=== PATIENT | female | born 1980 | race Caucasian/White ===

== ENCOUNTER 2016-04-16 09:36 | Emergency (ER) | payer OTHER ==
[2016-04-16 09:43] VITALS: BP 115/67
[2016-04-16 11:26] LABS: APPEARANCE,URINE SLIGHTLY-CLOUDY; BILIRUBIN,URINE NEGATIVE (NEGATIVE); GLUCOSE, URINE NEGATIVE (NEGATIVE); KETONES,URINE NEGATIVE (NEGATIVE); LEUKOCYTE ESTERASE,URINE MODERATE (NEGATIVE); NITRITE,URINE NEGATIVE (NEGATIVE); PROTEIN,URINE NEGATIVE (NEGATIVE); UROBILINOGEN,URINE NEGATIVE mg/dL (<2.0)
[2016-04-16] MEDS ORDERED: HYDROCORTISONE ACETATE 25 MG SUPP.RECT PR ONE (12:00)
--- NOTE | 2016-04-16 12:00 | ER Document Report ---
ED GI/ - General Mode of Arrival: Ambulatory Information source: Patient TRAVEL OUTSIDE OF THE [place] IN LAST 30 DAYS: No - HPI Patient complains to provider of: Flank pain Onset: This morning Timing/Duration: Sudden Location: RUQ, Right flank Associated symptoms: None Similar symptoms previously: Yes - General Chief Complaint: Flank Pain Stated Complaint: FLANK PAIN Notes: Patient is a 35 year old female that presents to the emergency department today with complaints of right upper quadrant and "side" pain. Patient states that she has a history of kidney stone and this feels similar to her previous kidney stones. Patient states she wanted to "catch it before it got bad" however while waiting in the waiting room of the ED, her symptoms subsided. Patient denies any dysuria or vaginal discharge. (AWAIS RUSSELL) - Related Data Allergies/Adverse Reactions: No Known Allergies Allergy (Verified 04/16/16 09:44) Past Medical History - General Information source: Patient - Social History Smoking Status: Current Every Day Smoker Cigarette use (# per day): Yes Chew tobacco use (# tins/day): No Frequency of alcohol use: None Drug Abuse: Marijuana Lives with: Family Family History: Reviewed & Not Pertinent Patient has suicidal ideation: No Patient has homicidal ideation: No Renal/ Medical History: Reports: Hx Kidney Stones Psychiatric Medical History: Reports: Hx Bipolar Disorder, Hx Depression Past Surgical History: Reports: Hx Nose Surgery, Hx Oral Surgery - Immunizations Hx Diphtheria, Pertussis, Tetanus Vaccination: No Review of Systems - Review of Systems Constitutional: No symptoms reported EENT: No symptoms reported Cardiovascular: No symptoms reported Respiratory: No symptoms reported Gastrointestinal: See HPI, Other - RUQ abdominal pain Genitourinary: See HPI, Other - right flank pain. denies: Burning, Dysuria, Discharge Female Genitourinary: No symptoms reported Musculoskeletal: No symptoms reported Skin: No symptoms reported Hematologic/Lymphatic: No symptoms reported Neurological/Psychological: No symptoms reported -: Yes All other systems reviewed and negative Physical Exam - Vital signs Interpretation: Normal - General General appearance: Appears well, Alert In distress: None - HEENT Head: Normocephalic, Atraumatic Eyes: Normal Conjunctiva: Normal Extraocular movements intact: Yes - Respiratory Respiratory status: No respiratory distress - Cardiovascular Rhythm: Regular - Abdominal Inspection: Normal Distension: No distension Bowel sounds: Normal Tenderness: Nontender - Back Back: Normal, Nontender. No: CVA tenderness - Extremities General upper extremity: Normal inspection, Normal ROM. No: Edema General lower extremity: Normal inspection, Normal ROM. No: Edema - Neurological Neuro grossly intact: Yes Cognition: Normal Orientation: AAOx4 Speech: Normal - Psychological Associated symptoms: Normal affect, Normal mood - Skin Skin Temperature: Warm Skin Moisture: Dry Skin Color: Normal Course - Re-evaluation Re-evalutation: 04/16/16 No evidence for infection or kidney stone today. Patient is able to follow up with urology at the [facility]. Patient is requesting Preparation H for hemorrhoids. Will be discharged home with Flomax and medication as the patient feels that she 's getting a kidney stone and is fairly insistent about this. Stable for discharge. Return if any worsening or concerning symptoms. (EMY PIPER) - Vital Signs Vital signs: Temp Pulse Resp BP Pulse Ox 98.0 F 76 20 115/67 98 04/16/16 09:43 04/16/16 09:43 04/16/16 09:43 04/16/16 09:43 04/16/16 09:43 (AWAIS RUSSELL) (EMY PIPER) - Laboratory Laboratory results interpreted by me: 04/16/16 10:40 Ur Leukocyte Esterase MODERATE H Urine Ascorbic Acid 40 H (AWAIS RUSSELL) (EMY PIPER) Discharge - Discharge Clinical Impression: Flank pain Hemorrhoids Qualifiers: Hemorrhoid type: unspecified Qualified Code(s): K64.9 - Unspecified hemorrhoids Condition: Stable Disposition: HOME, SELF-CARE Instructions: Kidney Stone ([facility]) Additional Instructions: Please follow-up with urology as scheduled. Please return if you have any worsening or concerning symptoms. Prescriptions: Ondansetron [Zofran Odt 4 mg Tablet] 4 mg PO Q4HP PRN #30 tab.rapdis PRN Reason: Oxycodone HCl/Acetaminophen [Percocet 5-325 mg Tablet] 1 tab PO ASDIR PRN #15 tab PRN Reason: Phenyleph/Mineral Oil/Petrolat [Preparation H Ointment] 57 gm RC BID #1 oint.appl Tamsulosin HCl [Flomax 0.4 mg Cap.sr] 0.4 mg PO DAILY #14 cap.sr.24h Scribe Attestation: 04/16/16 19:10 I personally performed the services described in the documentation, reviewed and edited the documentation which was dictated to the scribe in my presence, and it accurately records my words and actions. (EMY PIPER) Scribe Documentation - Scribe Written by Scribe:: Julián Diaz, 04/16/16 1220 acting as scribe for :: Albino
== END 2016-04-16 12:00 | disposition home or self-care (01) ==
LOC: ER 09:36
DX: K64.9 Unspecified hemorrhoids (principal); R10.11 Right upper quadrant pain; F17.210 Nicotine dependence, cigarettes, uncomplicated; Z87.442 Personal history of urinary calculi
CPT/HCPCS: 99284; 87086; 81025; 81001; J3490

== ENCOUNTER 2016-10-26 19:39 | Emergency (ER) | payer OTHER ==
[2016-10-26] MEDS ORDERED: IBUPROFEN 800 MG TABLET PO ONE (20:12)
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
[2016-10-26 21:35] VITALS: BP 117/70
== END 2016-10-26 21:30 | disposition home or self-care (01) ==
LOC: ER 19:39
DX: M25.511 Pain in right shoulder (principal); M25.512 Pain in left shoulder; Y04.8XXA Assault by other bodily force, initial encounter; Y92.009 Unspecified place in unspecified non-institutional (private) residence as the place of occurrence of the external cause; M25.40 Effusion, unspecified joint; F17.210 Nicotine dependence, cigarettes, uncomplicated; Z71.6 Tobacco abuse counseling
CPT/HCPCS: 99283

== ENCOUNTER 2017-09-03 19:24 | Emergency (ER) | payer OTHER ==
--- NOTE | 2017-09-03 20:16 | ER Document Report ---
ED Medical Screen (RME) - General Chief Complaint: Shortness Of Breath Stated Complaint: SHORTNESS OF BREATH Time Seen by Provider: 09/03/17 20:11 Mode of Arrival: Ambulatory Information source: Patient TRAVEL OUTSIDE OF THE [place] IN LAST 30 DAYS: No - HPI Patient complains to provider of: sob Onset: Yesterday - pt with c/o SOB for the past 2 days. Denies CP. Pos. cigarette smoker - Related Data Allergies/Adverse Reactions: No Known Allergies Allergy (Verified 04/16/16 09:44) Past Medical History Renal/ Medical History: Reports: Hx Kidney Stones. Denies: Hx Peritoneal Dialysis Musculoskeltal Medical History: Reports Hx Musculoskeletal Trauma Psychiatric Medical History: Reports: Hx Bipolar Disorder, Hx Depression Past Surgical History: Reports: Hx Nose Surgery, Hx Oral Surgery - Immunizations Hx Diphtheria, Pertussis, Tetanus Vaccination: No Physical Exam - Vital signs Vitals: Temp Pulse Resp BP Pulse Ox 98.4 F 78 18 115/69 98 09/03/17 19:34 09/03/17 19:34 09/03/17 19:34 09/03/17 19:34 09/03/17 19:34 Course - Vital Signs Vital signs: Temp Pulse Resp BP Pulse Ox 98.4 F 78 18 115/69 98 09/03/17 19:34 09/03/17 19:34 09/03/17 19:34 09/03/17 19:34 09/03/17 19:34
--- NOTE | 2017-09-03 20:36 | RADIOLOGY REPORT (SQ) ---
EXAM DESCRIPTION: CHEST 2 VIEWS COMPLETED DATE/TIME: 09/03/2017 8:29 pm REASON FOR STUDY: SOB COMPARISON: None. EXAM PARAMETERS: NUMBER OF VIEWS: two views TECHNIQUE: Digital Frontal and Lateral radiographic views of the chest acquired. RADIATION DOSE: NA LIMITATIONS: none FINDINGS: LUNGS AND PLEURA: No opacities, masses or pneumothorax. No pleural effusion. MEDIASTINUM AND HILAR STRUCTURES: No masses or contour abnormalities. HEART AND VASCULAR STRUCTURES: Heart normal size. No evidence for failure. BONES: No acute findings. HARDWARE: None in the chest. OTHER: No other significant finding. IMPRESSION: NO ACUTE RADIOGRAPHIC FINDING IN THE CHEST. TECHNICAL DOCUMENTATION: JOB ID: [id number] [employer]- All Rights Reserved Reading location - IP/workstation name: [email or web address]
[2017-09-03 20:54] LABS: ABSOLUTE BASOPHILS # (AUTO) 0.1 10^3/uL (0.0-0.2); ABSOLUTE EOSINOPHILS # (AUTO) 0.5 10^3/uL (0.0-0.6); ABSOLUTE LYMPHOCYTES (AUTO) 2.7 10^3/uL (0.5-4.7); ABSOLUTE MONOCYTES (AUTO) 0.7 10^3/uL (0.1-1.4); ABSOLUTE NEUT (AUTO) 6.1 10^3/uL (1.7-8.2); EOSINOPHILS % (AUTO) 4.5 % (0-6); HEMATOCRIT 37.3 % (36.0-47.0); LYMPHOCYTES % (AUTO) 26.5 % (13-45); MEAN CORPUSCULAR HEMOGLOBIN 31.7 pg (27.0-33.4); MEAN CORPUSCULAR HGB CONC 34.9 g/dL (32.0-36.0); MEAN CORPUSCULAR VOLUME 91 fl (80-97); MONOCYTES % (AUTO) 7.4 % (3-13); PLATELET COUNT 248 10^3/uL (150-450); RED CELL DISTRIBUTION WIDTH 12.9 % (11.5-14.0); SEGMENTED NEUTROPHILS % (AUTO) 60.6 % (42-78); TOTAL CELLS COUNTED % (AUTO) 100 %; WHITE BLOOD COUNT 10.1 10^3/uL (4.0-10.5)
[2017-09-03 20:59] LABS: ALANINE AMINOTRANSFERASE 19 U/L (9-52); ALBUMIN 4.3 g/dL (3.5-5.0); ALKALINE PHOSPHATASE 62 U/L (38-126); ANION GAP 11 (5-19); ASPARTATE AMINO TRANSFERASE 15 U/L (14-36); BILIRUBIN,DIRECT 0.2 mg/dL (0.0-0.4); BILIRUBIN,TOTAL 0.3 mg/dL (0.2-1.3); BLOOD UREA NITROGEN 6 mg/dL (7-20); CALCIUM 9.3 mg/dL (8.4-10.2); CARBON DIOXIDE 24 mmol/L (22-30); CHLORIDE 109 mmol/L (98-107); GLUCOSE 105 mg/dL (75-110); POTASSIUM 4.3 mmol/L (3.6-5.0); SODIUM 143.6 mmol/L (137-145); TOTAL PROTEIN 7.2 g/dL (6.3-8.2)
[2017-09-03] MEDS ORDERED: HYDROXYZINE PAMOATE 50 MG CAPSULE PO ONE (23:13)
--- NOTE | 2017-09-03 23:19 | ER Document Report ---
ED General - General Chief Complaint: Shortness Of Breath Stated Complaint: SHORTNESS OF BREATH Time Seen by Provider: 09/03/17 20:11 Mode of Arrival: Ambulatory Notes: Patient is a 37-year-old female with a past medical history of anxiety, bipolar disorder and depression who presents with 1 week of feeling intermittently like she cannot catch her breath. The patient reports that she often feels like there is something stuck in her throat and that she has to swallow repeatedly or sit up and gasp for air. She states this happens day and night but is more notable at night. She states that the symptoms have been unchanged since onset. She has not tried anything to improve her symptoms and has not noted that anything seems to worsen her symptoms. She does note that she self discontinued all of her psychiatric medications approximately 1-2 weeks ago. She also has had significant emotional distress due to loss of multiple family members recently. She denies any chest pain, fever, hematemesis or syncope. She has not seen her general doctor regarding today's concerns. She denies any history of similar symptoms in the past. TRAVEL OUTSIDE OF THE [place] IN LAST 30 DAYS: No - Related Data Allergies/Adverse Reactions: No Known Allergies Allergy (Verified 04/16/16 09:44) Past Medical History - General Information source: Patient - Social History Smoking Status: Current Every Day Smoker Chew tobacco use (# tins/day): No Frequency of alcohol use: None Drug Abuse: Cocaine, Marijuana Lives with: Alone Family History: Hyperlipidemia, Hypertension, Malignancy. denies: Arthritis, CAD, COPD, CVA, DM, Thyroid Disfunction Patient has suicidal ideation: No Patient has homicidal ideation: No Renal/ Medical History: Reports: Hx Kidney Stones. Denies: Hx Peritoneal Dialysis Musculoskeletal Medical History: Reports Hx Musculoskeletal Trauma Psychiatric Medical History: Reports: Hx Bipolar Disorder, Hx Depression Past Surgical History: Reports: Hx Nose Surgery, Hx Oral Surgery - Immunizations Hx Diphtheria, Pertussis, Tetanus Vaccination: No Review of Systems - Review of Systems Notes: Constitutional: Negative for fever. HENT: Negative for sore throat. Eyes: Negative for visual changes. Cardiovascular: Negative for chest pain. Respiratory: Positive for shortness of breath. Gastrointestinal: Negative for abdominal pain, vomiting or diarrhea. Genitourinary: Negative for dysuria. Musculoskeletal: Negative for back pain. Skin: Negative for rash. Neurological: Negative for headaches, weakness or numbness. 10 point ROS negative except as marked above and in HPI. Physical Exam - Vital signs Vitals: Temp Pulse Resp BP Pulse Ox 98.4 F 78 18 115/69 98 09/03/17 19:34 09/03/17 19:34 09/03/17 19:34 09/03/17 19:34 09/03/17 19:34 Interpretation: Normal Notes: PHYSICAL EXAMINATION: GENERAL: Well-appearing, well-nourished and in no acute distress. HEAD: Atraumatic, normocephalic. EYES: Pupils equal round and reactive to light, extraocular movements intact, sclera anicteric, conjunctiva are normal. ENT: nares patent, oropharynx clear without exudates. Moist mucous membranes. NECK: Normal range of motion, supple without lymphadenopathy, no stridor LUNGS: Breath sounds clear to auscultation bilaterally and equal. No wheezes rales or rhonchi. HEART: Regular rate and rhythm without murmurs ABDOMEN: Soft, nontender, normoactive bowel sounds. No guarding, no rebound. No masses appreciated. EXTREMITIES: Normal range of motion, no pitting or edema. No cyanosis. NEUROLOGICAL: No focal neurological deficits. Moves all extremities spontaneously and on command. PSYCH: Anxious, tearful SKIN: Warm, Dry, normal turgor, no rashes or lesions noted. Course - Re-evaluation Re-evalutation: 09/03/17 23:17 The patient presents with complaints of 1 week of feeling that she cannot catch her breath. The patient relates severe stressors and anxiety in her life and has also self discontinued all of her antidepressants and her Abilify. She states that it feels like she cannot take a deep breath as there is something caught in her throat. However on exam she is well-appearing, talking in a normal pace, no stridor or wheezing on exam. Labs and imaging unremarkable. The patient is tearful, highly anxious on examination. Clinical history is not consistent with an organic pathology such as bacterial tracheitis, epiglottitis , asthma exacerbation, or an acute pneumonia. She is PERC criteria negative and I do not clinically suspect a pulmonary embolus. Chest x-ray is clear. EKG unremarkable. Labs including a troponin unremarkable. I have restarted the patient on her normal home medications of which she has been off for the past 1 week and have started on hydroxyzine as needed for anxiety. At this time will discharge with return precautions and follow-up recommendations. Verbal discharge instructions given a the bedside and opportunity for questions given. Medication warnings reviewed. Patient is in agreement with this plan and has verbalized understanding of return precautions and the need for primary care follow-up in the next 24-72 hours. - Vital Signs Vital signs: Temp Pulse Resp BP Pulse Ox 97.8 F 73 16 104/49 L 99 09/03/17 23:59 09/03/17 23:59 09/03/17 23:59 09/03/17 23:59 09/03/17 23:59 - Laboratory Result Diagrams: 09/03/17 20:33 09/03/17 20:33 Laboratory results interpreted by me: 09/03/17 20:33 Chloride 109 H BUN 6 L - Diagnostic Test Radiology reviewed: Image reviewed, Reports reviewed Radiology results interpreted by me: 09/03/17 23:19 Chest x-ray: No acute infiltrate or pneumothorax - EKG Interpretation by Me Additional EKG results interpreted by me: 09/03/17 23:19 Sinus rhythm. Rate 75. No ST elevations or depressions. QTC is 434. Discharge - Discharge Clinical Impression: Shortness of breath, Anxiety Condition: Good Disposition: HOME, SELF-CARE Additional Instructions: Please begin taking all of your normal medications as prescribed. Use the hydroxyzine that has been prescribed as needed for anxiety not controlled by your normal medications. All of your labs and chest x-ray are normal today. Your symptoms appear to be most likely related to your untreated anxiety and depression. Please return if you have thoughts of wanting to hurt yourself, hurt others, or have any other symptoms that are concerning to you. Please also return if any worsening of your shortness of breath, chest pain, vomiting, fever greater than 100.4F, or any other symptoms that are worrisome to you. Prescriptions: Aripiprazole [Abilify] 20 mg PO DAILY #30 tablet Gabapentin 300 mg PO BID #60 capsule Hydroxyzine Pamoate [Vistaril 25 mg Capsule] 25 mg PO BID PRN #30 capsule PRN Reason: Anxiety Venlafaxine HCl 75 mg PO DAILY #30 tablet
--- NOTE | 2017-09-03 23:25 | EKG REPORT ---
SEVERITY:- NORMAL ECG - SINUS RHYTHM : Confirmed by: Cathy Quintero MD 03-Sep-2017 23:24:58
[2017-09-04 00:08] VITALS: BP 104/49
== END 2017-09-04 00:08 | disposition home or self-care (01) ==
LOC: ER 19:24
DX: F41.9 Anxiety disorder, unspecified (principal); F43.9 Reaction to severe stress, unspecified; R06.02 Shortness of breath; R09.89 Other specified symptoms and signs involving the circulatory and respiratory systems; F31.9 Bipolar disorder, unspecified; T43.596A Underdosing of other antipsychotics and neuroleptics, initial encounter; T43.206A Underdosing of unspecified antidepressants, initial encounter; Z91.128 Patient's intentional underdosing of medication regimen for other reason; Z91.14 Patient's other noncompliance with medication regimen; F17.200 Nicotine dependence, unspecified, uncomplicated
CPT/HCPCS: 36415; 71046; 80053; 84484; 85025; 93005; 93010; 99285

== ENCOUNTER 2017-10-07 08:38 | Observation (INO) | payer OTHER ==
[2017-10-07] MEDS ORDERED: NORMAL SALINE 1000 ML 1,000 ML IV PRN (09:14)
[2017-10-07 09:31] LABS: ABSOLUTE BASOPHILS # (AUTO) 0.1 10^3/uL (0.0-0.2); ABSOLUTE EOSINOPHILS # (AUTO) 0.4 10^3/uL (0.0-0.6); ABSOLUTE LYMPHOCYTES (AUTO) 2.4 10^3/uL (0.5-4.7); ABSOLUTE MONOCYTES (AUTO) 0.9 10^3/uL (0.1-1.4); BASOPHILS % (AUTO) 0.9 % (0-2); EOSINOPHILS % (AUTO) 3.5 % (0-6); HEMATOCRIT 38.1 % (36.0-47.0); HEMOGLOBIN 13.1 g/dL (12.0-15.5); LYMPHOCYTES % (AUTO) 22.6 % (13-45); MEAN CORPUSCULAR HEMOGLOBIN 31.3 pg (27.0-33.4); MEAN CORPUSCULAR HGB CONC 34.4 g/dL (32.0-36.0); MEAN CORPUSCULAR VOLUME 91 fl (80-97); PLATELET COUNT 365 10^3/uL (150-450); RED BLOOD COUNT 4.18 10^6/uL (3.72-5.28); RED CELL DISTRIBUTION WIDTH 13.4 % (11.5-14.0); TOTAL CELLS COUNTED % (AUTO) 100 %; WHITE BLOOD COUNT 10.8 10^3/uL (4.0-10.5)
[2017-10-07] MEDS ORDERED: KETOROLAC TROMETHAMINE INJ/PF 30 MG/1 ML SDV IV ONE (09:34)
[2017-10-07 09:48] LABS: APPEARANCE,URINE TURBID; BILIRUBIN,URINE NEGATIVE (NEGATIVE); COLOR,URINE AMBER; GLUCOSE, URINE NEGATIVE (NEGATIVE); KETONES,URINE TRACE mg/dL (NEGATIVE); LEUKOCYTE ESTERASE,URINE LARGE (NEGATIVE); NITRITE,URINE NEGATIVE (NEGATIVE); PROTEIN,URINE 100 mg/dL (NEGATIVE); URINE SPECIFIC GRAVITY 1.023; UROBILINOGEN,URINE NEGATIVE mg/dL (<2.0)
[2017-10-07 09:50] LABS: ALANINE AMINOTRANSFERASE 8 U/L (9-52); ALBUMIN 4.5 g/dL (3.5-5.0); ALKALINE PHOSPHATASE 95 U/L (38-126); ANION GAP 15 (5-19); ASPARTATE AMINO TRANSFERASE 25 U/L (14-36); BILIRUBIN,DIRECT 0.3 mg/dL (0.0-0.4); BILIRUBIN,TOTAL 0.6 mg/dL (0.2-1.3); BLOOD UREA NITROGEN 7 mg/dL (7-20); CALCIUM 9.7 mg/dL (8.4-10.2); CARBON DIOXIDE 23 mmol/L (22-30); CHLORIDE 106 mmol/L (98-107); GLUCOSE 96 mg/dL (75-110); POTASSIUM 4.2 mmol/L (3.6-5.0); SODIUM 143.5 mmol/L (137-145)
[2017-10-07] MEDS ORDERED: CEFTRIAXONE INJ 1000 MG VIAL IV ONE (11:22)
--- NOTE | 2017-10-07 11:57 | RADIOLOGY REPORT (SQ) ---
EXAM DESCRIPTION: CT LTD RENAL STONE PROTOCOL ON COMPLETED DATE/TIME: 10/07/2017 11:41 am REASON FOR STUDY: Right flank pain, urine positive blood, WBC, bact COMPARISON: 04/21/2015 TECHNIQUE: CT scan of the abdomen and pelvis performed without intravenous or oral contrast. Images reviewed with lung, soft tissue, and bone windows. Reconstructed coronal and sagittal MPR images revi ewed. All images stored on PACS. All CT scanners at this facility use dose modulation, iterative reconstruction, and/or weight based d osing when appropriate to reduce radiation dose to as low as reasonably achievable (ALARA). [facility]: Dose Right [facility]: CareDose [facility]: Dose Right [facility]: Teradose 4D [facility]: [employer] RADIATION DOSE: CT Rad equipment meets quality standard of care and radiation dose reduction techniq ues were employed. CTDIvol: 6.8 mGy. DLP: 369 mGy-cm.mGy. LIMITATIONS: None. FINDINGS: LOWER CHEST: No significant findings. No nodules or infiltrates. NON-CONTRASTED LIVER, SPLEEN, ADRENALS: Evaluation limited by lack of IV contrast. No identified sign ificant masses. PANCREAS: No masses. No peripancreatic inflammatory changes. GALLBLADDER: No identified stones by CT criteria. No inflammatory changes to suggest cholecystitis. RIGHT KIDNEY AND URETER: No suspicious masses. Assessment limited by lack of IV contrast. 14 x 13 x 8 mm right UPJ stone with mild to moderate obstructive changes. Stone measures 965 Houn[address] unit s. LEFT KIDNEY AND URETER: No suspicious masses. Assessment limited by lack of IV contrast. No signifi cant calcifications. No hydronephrosis or hydroureter. AORTA AND RETROPERITONEUM: No aneurysm. No retroperitoneal masses or adenopathy. BOWEL AND PERITONEAL CAVITY: No obvious masses or inflammatory changes. No free fluid. APPENDIX: Normal. PELVIS, BLADDER, AND ABDOMINAL WALL:Small calcifications in the pelvis thought to represent phlebolit hs. No abnormal masses. No free fluid. Bladder normal. BONES: No significant findings. OTHER: No other significant finding. IMPRESSION: 1. 14 x 8 mm right UPJ stone with mild to moderate obstructive changes. COMMENT: Quality ID # [id number]: Final reports with documentation of one or more dose reduction techniques (e.g., Automated exposure control, adjustment of the mA and/or kV according to patient size, use of iterative reconstruction technique) TECHNICAL DOCUMENTATION: JOB ID: [id number] [employer]- All Rights Reserved Reading location - IP/workstation name: [email or web address]
--- NOTE | 2017-10-07 12:05 | ER Document Report ---
ED General - General Chief Complaint: Possible Kidney Stone Stated Complaint: SIDE PAIN Time Seen by Provider: 10/07/17 09:27 Notes: Patient says that she has been having pain in her right side and flank region for the past 4 days. Initially, it was intermittent, coming on and then going away, but now it has become constant and feels as if it is stabbing and worse. She denies any fever. Denies any nausea or vomiting. Denies any other current symptoms. Patient has a history of kidney stones 4 times in the past which she has been able to pass. Patient just finished her menstrual cycle a couple of days ago. She is usually irregular. Has never had any abdominal surgeries. TRAVEL OUTSIDE OF THE [place] IN LAST 30 DAYS: No - Related Data Allergies/Adverse Reactions: No Known Allergies Allergy (Verified 04/16/16 09:44) Past Medical History - Social History Smoking Status: Current Every Day Smoker Family History: Reviewed & Not Pertinent, Hyperlipidemia, Hypertension, Malignancy Patient has suicidal ideation: No Patient has homicidal ideation: No Renal/ Medical History: Reports: Hx Kidney Stones Musculoskeletal Medical History: Reports Hx Musculoskeletal Trauma Psychiatric Medical History: Reports: Hx Anxiety, Hx Bipolar Disorder, Hx Depression, Hx Post Traumatic Stress Disorder, Other - Panic attacks Past Surgical History: Reports: None, Hx Nose Surgery, Hx Oral Surgery - Immunizations Hx Diphtheria, Pertussis, Tetanus Vaccination: No Review of Systems - Review of Systems Notes: REVIEW OF SYSTEMS: CONSTITUTIONAL : Denies fever. EENT: Denies eye, ear, nose or mouth or throat pain or other symptoms. CARDIOVASCULAR: Denies chest pain. RESPIRATORY: Denies cough, chest congestion, or shortness of breath. GASTROINTESTINAL: See HPI regarding right flank pain, but denies abdominal pain or nausea, vomiting, or diarrhea. GENITOURINARY: Denies difficulty or painful urinating, urinary frequency, blood in urine. MUSCULOSKELETAL: Denies back or neck pain. Denies joint pain or swelling. SKIN: Denies rash or skin lesions. NEUROLOGICAL: Denies LOC or altered mental status. Denies headache. Denies sensory loss or motor deficits. ALL OTHER SYSTEMS REVIEWED AND NEGATIVE. Physical Exam - Vital signs Vitals: Temp Pulse Resp BP Pulse Ox 98.7 F 100 20 130/91 H 98 10/07/17 08:43 10/07/17 08:43 10/07/17 08:43 10/07/17 08:43 10/07/17 08:43 - Notes Notes: PHYSICAL EXAMINATION: GENERAL: Well-appearing, in no acute distress. Vital signs are all normal. Afebrile. Not toxic appearing. HEAD: Atraumatic, normocephalic. EYES: Pupils equal round and reactive to light, extraocular movements intact. ENT: oropharynx clear without exudates. Moist mucous membranes. NECK: Normal range of motion, supple. LUNGS: Breath sounds clear and equal bilaterally. HEART: Regular rate and rhythm without murmurs. ABDOMEN: Soft, nontender. No guarding or rebound. No masses. Tenderness starts far laterally in the right side. Not near the gallbladder or appendix. BACK: No tenderness throughout entire back. Some percussion tenderness in the right flank region. EXTREMITIES: Normal range of motion without pain. NEUROLOGICAL: Normal speech, normal gait. Normal sensory, motor, and reflex exams. Awake, alert, and oriented x3. Cranial nerves normal. PSYCH: Normal mood, normal affect. SKIN: Warm, dry, no rashes. Course - Re-evaluation Re-evalutation: 10/07/17 12:41 Patient's urine looks infected. Because of the stone that she has that is not going to be able to be passed, I contacted Dr. Truong, who is not actually on urology today, but kindly took my call, we worked out that if patient can be admitted to the hospitalist service, he can put a stent in her right ureter tomorrow morning and then follow her up as an outpatient after that. I contacted the hospitalist who will see and admit the patient. Patient's white count is only 10,800 and she is does not look toxic or septic. She has been given a gram of Rocephin IV and a liter of fluids. - Vital Signs Vital signs: Temp Pulse Resp BP Pulse Ox 98.7 F 100 20 130/91 H 98 10/07/17 08:43 10/07/17 08:43 10/07/17 08:43 10/07/17 08:43 10/07/17 08:43 - Laboratory Result Diagrams: 10/07/17 09:20 10/07/17 09:20 Laboratory results interpreted by me: 10/07/17 10/07/17 10/07/17 09:20 09:20 09:20 WBC 10.8 H ALT 8 L Urine Protein 100 H Urine Ketones TRACE H Urine Blood MODERATE H Ur Leukocyte Esterase LARGE H - Diagnostic Test Radiology reviewed: Image reviewed, Reports reviewed - CT scan shows a 14 x 8 mm stone in the right UPJ with mild to moderate obstructive changes. Discharge - Discharge Clinical Impression: Obstruction of right ureteropelvic junction (UPJ) due to stone, UTI (urinary tract infection) Condition: Stable Disposition: ADMITTED OBSERVATION Admitting Provider: Hospitalist Unit Admitted: Medical Floor
[2017-10-07] MEDS ORDERED: DOCUSATE SODIUM 100 MG CAPSULE PO PRN (13:01)
[2017-10-07] MEDS ORDERED: ACETAMINOPHEN 325 MG TABLET PO PRN (13:01)
[2017-10-07] MEDS ORDERED: ONDANSETRON HCL INJ/PF 4 MG/2 ML SDV IV PRN (13:11)
[2017-10-07] MEDS ORDERED: KETOROLAC TROMETHAMINE INJ/PF 30 MG/1 ML SDV IV PRN (13:13)
[2017-10-07] MEDS ORDERED: CEFAZOLIN 1 GM/D5W RTU 1 GM/50 ML RTUPB IV PRN (13:13)
[2017-10-07] MEDS ORDERED: HYDROXYZINE PAMOATE 25 MG CAPSULE PO PRN (15:49)
--- NOTE | 2017-10-07 16:03 | PDOC H&P ---
History of Present Illness Admission Date/PCP: 10/07/17 13:34 Patient complains of: Right flank pain History of Present Illness: VALERIO URBANO is a 37 year old female with a past medical history of PKU, renal stones, bipolar, PTSD, depression and anxiety who presented to the emergency department today with a complaint of right flank pain for the last 4 days. Initially pain was intermittent but now is constant and worsening; similar to previous kidney stone pain. Evaluation in the emergency department reveals mild leukocytosis with a WBC of 10.8, normal chemistry, and urinalysis with positive for ketones, blood, leukoesterase, and WBCs. Renal CT revealed a 14 x 8 mm right UPJ stone with mild to moderate hydronephrosis. Urology has been consulted by the emergency department provider and has agreed to place a stent tomorrow. She is referred to the hospitalist service for observational admission and management. Past Medical History Cardiac Medical History: Reports: None Pulmonary Medical History: Reports: None EENT Medical History: Reports: None Neurological Medical History: Reports: None Endocrine Medical History: Reports: None Renal/ Medical History: Reports: Nephrolithiasis Malignancy Medical History: Reports: None GI Medical History: Reports: None Musculoskeltal Medical History: Reports: None Psychiatric Medical History: Reports: Bipolar Disorder, Depression, Post Traumatic Stress Disorder, Other - Panic attacks Traumatic Medical History: Reports: None Hematology: Reports: None Infectious Medical History: Reports: None Past Surgical History Past Surgical History: Reports: None Social History Information Source: Patient Lives with: Alone Smoking Status: Current Every Day Smoker Cigarettes Packs Per Day: 0.2 Frequency of Alcohol Use: None Hx Recreational Drug Use: Yes Drugs: Cocaine, Marijuana Hx Prescription Drug Abuse: No - Advance Directive Resuscitation Status: Full Code Surrogate healthcare decision maker:: The patient's father, Hunter Nguyen, or [phone] Family History Family History: Reviewed & Not Pertinent, CVA, Hyperlipidemia, Hypertension, Malignancy Parental Family History Reviewed: Yes Children Family History Reviewed: NA Sibling(s) Family History Reviewed.: Yes Medication/Allergy Home Medications: Aripiprazole [Abilify 30 MG Tablet] 15 mg PO DAILY 10/07/17 Gabapentin [Neurontin 300 mg Capsule] 300 mg PO BID 10/07/17 Hydroxyzine Pamoate [Vistaril 25 mg Capsule] 25 mg PO Q12HP PRN 10/07/17 Multivitamin [Animal [employer]apes Vitamins] 1 tab PO DAILY 10/07/17 Venlafaxine HCl ER [Effexor Xr 75 mg Cap.sr] 150 mg PO DAILY 10/07/17 Allergies/Adverse Reactions: No Known Allergies Allergy (Verified 04/16/16 09:44) Review of Systems Constitutional: ABSENT: chills, fever(s), headache(s), weight gain, weight loss Eyes: ABSENT: visual disturbances Ears: ABSENT: hearing changes Cardiovascular: ABSENT: chest pain, dyspnea on exertion, edema, orthropnea, palpitations Respiratory: ABSENT: cough, hemoptysis Gastrointestinal: ABSENT: abdominal pain, constipation, diarrhea, hematemesis, hematochezia, nausea, vomiting Genitourinary: PRESENT: other - Flank pain. ABSENT: dysuria, hematuria Musculoskeletal: ABSENT: joint swelling Integumentary: ABSENT: rash, wounds Neurological: ABSENT: abnormal gait, abnormal speech, confusion, dizziness, focal weakness, syncope Psychiatric: ABSENT: anxiety, depression, homidical ideation, suicidal ideation Endocrine: ABSENT: cold intolerance, heat intolerance, polydipsia, polyuria Hematologic/Lymphatic: ABSENT: easy bleeding, easy bruising Physical Exam Vital Signs: Temp Pulse Resp BP Pulse Ox 97.5 F 56 L 20 124/72 98 10/07/17 13:11 10/07/17 13:11 10/07/17 08:43 10/07/17 13:11 10/07/17 13:11 General appearance: PRESENT: no acute distress, well-developed, well-nourished, other - Overweight Head exam: PRESENT: atraumatic, normocephalic Eye exam: PRESENT: conjunctiva pink, EOMI, PERRLA. ABSENT: scleral icterus Ear exam: PRESENT: normal external ear exam Mouth exam: PRESENT: moist, tongue midline Neck exam: ABSENT: carotid bruit, JVD, lymphadenopathy, thyromegaly Respiratory exam: PRESENT: clear to auscultation jesusita. ABSENT: rales, rhonchi, wheezes Cardiovascular exam: PRESENT: RRR. ABSENT: diastolic murmur, rubs, systolic murmur Pulses: PRESENT: normal dorsalis pedis pul Vascular exam: PRESENT: normal capillary refill GI/Abdominal exam: PRESENT: normal bowel sounds, soft, tenderness - Rt CVA. ABSENT: distended, guarding, mass, organolmegaly, rebound Rectal exam: PRESENT: deferred Extremities exam: PRESENT: full ROM. ABSENT: calf tenderness, clubbing, pedal edema Neurological exam: PRESENT: alert, awake, oriented to person, oriented to place , oriented to time, oriented to situation, CN II-XII grossly intact. ABSENT: motor sensory deficit Psychiatric exam: PRESENT: appropriate affect, normal mood. ABSENT: homicidal ideation, suicidal ideation Skin exam: PRESENT: dry, intact, warm. ABSENT: cyanosis, rash Results Impressions: Limited or Localized CT 10/07/17 11:23 IMPRESSION: 1. 14 x 8 mm right UPJ stone with mild to moderate obstructive changes. Assessment & Plan - Diagnosis (1) Obstruction of right ureteropelvic junction (UPJ) due to stone Is this a current diagnosis for this admission?: Yes Plan: The patient presented with right flank pain similar to previous episodes of renal stones. Renal stone CT revealed a right UJP renal stone with mild to moderate hydronephrosis. Dr. Truong has been consulted and intends to take the patient to the OR for stenting tomorrow. Ancef on-call to the OR. She is n.p.o. after midnight. As needed Tylenol, IV Toradol, and p.o. oxycodone for pain. Antiemetics as needed. (2) UTI (urinary tract infection) Qualifiers: Urinary tract infection type: site unspecified Hematuria presence: with hematuria Qualified Code(s): N39.0 - Urinary tract infection, site not specified; R31.9 - Hematuria, unspecified; R31.9 - Hematuria, unspecified Is this a current diagnosis for this admission?: Yes Plan: Urinalysis revealed protein, ketones, blood, large leuk esterase, 182 WBCs, 1+ bacteria. Urine culture is pending. The patient denies urinary tract symptoms; denies dysuria, urinary urgency and frequency, fever, chills, body aches, fatigue and malaise. Her leukocytosis and urinalysis could be attributed to her renal stone and does not necessarily reflect acute urinary tract infection. She has already received 1 g IV Rocephin by the emergency department provider. 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 We will defer further antibiotic therapy to urology. (3) Depression with anxiety Is this a current diagnosis for this admission?: Yes Plan: The patient's home medication regimen is continued. (4) Tobacco dependence Is this a current diagnosis for this admission?: Yes Plan: Smoking cessation is encouraged, nicotine replacement therapies are offered and declined. (5) Illicit drug use Is this a current diagnosis for this admission?: Yes Plan: The patient does endorse recent illicit drug use; reporting that she has used cocaine and marijuana within the last week. She denies regular drug or alcohol intake. She denies previous history of withdrawal or concern that she will develop withdrawal symptoms while in the hospital. We will monitor closely for evidence of withdrawal and treat as necessary. We will minimize narcotics. Discharge planning is consulted. - Time Time Spent: 50 to 70 Minutes Medications reviewed and adjusted accordingly: Yes Anticipated discharge: Home Within: within 24 hours
[2017-10-07 16:59] LABS: URINE AMPHETAMINES SCREEN NEGATIVE; URINE BARBITURATES SCREEN NEGATIVE; URINE BENZODIAZEPINES SCREEN NEGATIVE; URINE COCAINE SCREEN UNCONFIRMED POSITIVE; URINE MARIJUANA (THC) SCREEN NEGATIVE; URINE METHADONE SCREEN NEGATIVE; URINE PHENCYCLIDINE SCREEN NEGATIVE
[2017-10-07] MEDS: GABAPENTIN 300 MG CAPSULE PO SCH (18:26)
[2017-10-07] MEDS: FAMOTIDINE 20 MG TABLET PO SCH (22:51)
[2017-10-07] MEDS: OXYCODONE-ACETAMINOPHEN 5-325 MG TABLET PO PRN (23:05)
[2017-10-08] MEDS: GABAPENTIN 300 MG CAPSULE PO SCH ×2 (05:36→17:36)
[2017-10-08] MEDS ORDERED: CEFAZOLIN INJ 1 GM VIAL ONE (06:43)
[2017-10-08] MEDS ORDERED: PROPOFOL INJ 200 MG/20 ML VIAL IV ONE (07:11)
[2017-10-08] MEDS ORDERED: FENTANYL CITRATE INJ/PF 100 MCG/2 ML AMPUL ONE (07:11)
[2017-10-08] MEDS ORDERED: MIDAZOLAM 2 MG/2 ML INJ ONE (07:11)
[2017-10-08 07:19] LABS: HEMATOCRIT 34.7 % (36.0-47.0); MEAN CORPUSCULAR HEMOGLOBIN 31.6 pg (27.0-33.4); MEAN CORPUSCULAR HGB CONC 34.6 g/dL (32.0-36.0); MEAN CORPUSCULAR VOLUME 92 fl (80-97); PLATELET COUNT 274 10^3/uL (150-450); RED BLOOD COUNT 3.79 10^6/uL (3.72-5.28); RED CELL DISTRIBUTION WIDTH 13.3 % (11.5-14.0); WHITE BLOOD COUNT 9.3 10^3/uL (4.0-10.5)
[2017-10-08 07:32] LABS: ANION GAP 13 (5-19); BLOOD UREA NITROGEN 8 mg/dL (7-20); CALCIUM 9.2 mg/dL (8.4-10.2); CARBON DIOXIDE 23 mmol/L (22-30); CHLORIDE 108 mmol/L (98-107); GLUCOSE 106 mg/dL (75-110); POTASSIUM 4.5 mmol/L (3.6-5.0); SODIUM 143.6 mmol/L (137-145)
[2017-10-08] MEDS ORDERED: ALBUTEROL SULFATE 0.083% NEB 2.5 MG/3 ML AMPUL NEB ONE (07:58)
[2017-10-08] MEDS: OXYCODONE-ACETAMINOPHEN 5-325 MG TABLET PO PRN ×2 (08:57→23:22)
[2017-10-08] MEDS ORDERED: ARIPIPRAZOLE 5 MG TABLET PO SCH (10:00)
[2017-10-08] MEDS ORDERED: VENLAFAXINE HCL 75 MG CAP.SR.24H PO SCH (10:00)
[2017-10-08] MEDS ORDERED: (PENDING PHARMACY ID) (Aripiprazole [Abilify 30 Mg Tablet] 15 MG) PO SCH (10:00)
[2017-10-08] MEDS ORDERED: MULTIVITAMIN PO SCH (10:00)
[2017-10-08] MEDS ORDERED: MULTIVITAMINS W-IRON TABLET, CHEWABLE PO SCH (10:00)
[2017-10-08] MEDS ORDERED: DEXTROSE 50%-WATER 25 GM/50 ML DISP.SYRIN IV PRN ×2 (10:12)
[2017-10-08] MEDS ORDERED: GLUCAGON,HUMAN RECOMB 1 MG INJ SUBCUT PRN (10:12)
[2017-10-08] MEDS ORDERED: DEXTROSE 40% GEL 15 GM TUBE PO PRN ×2 (10:12)
[2017-10-08] MEDS: FAMOTIDINE 20 MG TABLET PO SCH ×2 (10:38→21:25)
--- NOTE | 2017-10-08 12:39 | EKG REPORT ---
SEVERITY:- OTHERWISE NORMAL ECG - SINUS ARRHYTHMIA, RATE 52-76 : Confirmed by: Yobani Sandra MD 08-Oct-2017 12:38:40
--- NOTE | 2017-10-08 15:20 | PDOC PROGRESS REPORT ---
Subjective Progress Note for:: 10/08/17 Subjective:: The patient is a 37-year-old female with a past medical history of PKU, renal stones, bipolar, PTSD, depression, anxiety and illicit drug use who was admitted 10/07/17 for nephrolithiasis with mild to moderate hydronephrosis. The patient was seen on morning rounds. She is found resting in bed comfortably on room air. Unfortunately, her UDS was positive for cocaine answer her procedure had to be delayed. Plan is for repeat UDS in the morning and if normal may proceed to the OR for ureter stent placing by Dr. Truong. The patient understands this precaution. She reports intermittent right flank pain that is well controlled by oxycodone. She denies fever, chills abdominal pain, nausea, vomiting, dysuria, urinary urgency and frequency. Overall, she is feeling better today and has no new questions or concerns. Reason For Visit: HYDRONEPHROSIS RENAL CALCULI Physical Exam Vital Signs: Temp Pulse Resp BP Pulse Ox 98.0 F 82 16 127/76 H 100 10/08/17 11:39 10/08/17 11:39 10/08/17 11:39 10/08/17 11:39 10/08/17 11:39 Intake & Output 10/07/17 10/08/17 10/09/17 06:59 06:59 06:59 Weight 71.5 kg General appearance: PRESENT: no acute distress, well-developed, well-nourished, other - Overweight Head exam: PRESENT: atraumatic, normocephalic Eye exam: PRESENT: conjunctiva pink, EOMI, PERRLA. ABSENT: scleral icterus Ear exam: PRESENT: normal external ear exam Mouth exam: PRESENT: moist, tongue midline Neck exam: ABSENT: carotid bruit, JVD, lymphadenopathy, thyromegaly Respiratory exam: PRESENT: clear to auscultation jesusita, symmetrical, unlabored. ABSENT: rales, rhonchi, wheezes Cardiovascular exam: PRESENT: RRR, +S1, +S2. ABSENT: diastolic murmur, rubs, systolic murmur Pulses: PRESENT: normal dorsalis pedis pul Vascular exam: PRESENT: normal capillary refill GI/Abdominal exam: PRESENT: normal bowel sounds, soft. ABSENT: distended, guarding, mass, organolmegaly, rebound, tenderness Rectal exam: PRESENT: deferred Extremities exam: PRESENT: full ROM. ABSENT: calf tenderness, clubbing, pedal edema Neurological exam: PRESENT: alert, awake, oriented to person, oriented to place , oriented to time, oriented to situation, CN II-XII grossly intact. ABSENT: motor sensory deficit Psychiatric exam: PRESENT: appropriate affect, normal mood. ABSENT: homicidal ideation, suicidal ideation Skin exam: PRESENT: dry, intact, warm. ABSENT: cyanosis, rash Results Laboratory Results: 10/08/17 06:24 10/08/17 06:24 10/08/17 10/08/17 06:24 06:24 WBC 9.3 RBC 3.79 Hgb 12.0 Hct 34.7 L MCV 92 MCH 31.6 MCHC 34.6 RDW 13.3 Plt Count 274 Sodium 143.6 Potassium 4.5 Chloride 108 H Carbon Dioxide 23 Anion Gap 13 BUN 8 Creatinine 0.84 Est GFR ( Amer) > 60 Est GFR (Non-Af Amer) > 60 Glucose 106 Calcium 9.2 Impressions: Limited or Localized CT 10/07/17 11:23 IMPRESSION: 1. 14 x 8 mm right UPJ stone with mild to moderate obstructive changes. Assessment & Plan - Diagnosis (1) Obstruction of right ureteropelvic junction (UPJ) due to stone Is this a current diagnosis for this admission?: Yes Plan: The patient presented with right flank pain similar to previous episodes of renal stones. Renal stone CT revealed a right UJP renal stone with mild to moderate hydronephrosis. Dr. Truong has been consulted; appreciate his expertise. Alexandru on-call to the OR. She is n.p.o. after midnight. Repeat UDS in the morning; if normal will proceed to the OR for stenting. As needed Tylenol, IV Toradol, and p.o. oxycodone for pain. Antiemetics as needed. (2) UTI (urinary tract infection) Qualifiers: Urinary tract infection type: site unspecified Hematuria presence: with hematuria Qualified Code(s): N39.0 - Urinary tract infection, site not specified; R31.9 - Hematuria, unspecified; R31.9 - Hematuria, unspecified Is this a current diagnosis for this admission?: Yes Plan: Urinalysis revealed protein, ketones, blood, large leuk esterase, 182 WBCs, 1+ bacteria. Urine culture demonstrated normal silverio. The patient denies urinary tract symptoms; denies dysuria, urinary urgency and frequency, fever, chills, body aches, fatigue and malaise. Her leukocytosis and urinalysis could be attributed to her renal stone and does not necessarily reflect acute urinary tract infection. She has already received 1 g IV Rocephin by the emergency department provider. We will hold on additional antibiotics other than the Ancef planned for property utilization officer to the OR tomorrow. We will defer further antibiotic therapy to urology. (3) Depression with anxiety Is this a current diagnosis for this admission?: Yes Plan: The patient's home medication regimen is continued. (4) Tobacco dependence Is this a current diagnosis for this admission?: Yes Plan: Smoking cessation is encouraged, nicotine replacement therapies are offered and declined. (5) Illicit drug use Is this a current diagnosis for this admission?: Yes Plan: The patient does endorse recent illicit drug use; reporting that she has used cocaine and marijuana within the last week. She denies regular drug or alcohol intake. She denies previous history of withdrawal or concern that she will develop withdrawal symptoms while in the hospital. UDS positive for cocaine. We will monitor closely for evidence of withdrawal and treat as necessary. We will minimize narcotics. Discharge planning is consulted. - Time Time Spent with patient: 15-24 minutes Medications reviewed and adjusted accordingly: Yes Anticipated discharge: Home Within: within 24 hours
[2017-10-08] MEDS: NORMAL SALINE 1000 ML 1,000 ML IV PRN (21:23)
[2017-10-09] MEDS: GABAPENTIN 300 MG CAPSULE PO SCH (05:54)
[2017-10-09] MEDS: NORMAL SALINE 1000 ML 1,000 ML IV PRN (05:55)
[2017-10-09 06:15] LABS: URINE AMPHETAMINES SCREEN NEGATIVE; URINE BARBITURATES SCREEN NEGATIVE; URINE BENZODIAZEPINES SCREEN NEGATIVE; URINE MARIJUANA (THC) SCREEN NEGATIVE; URINE METHADONE SCREEN NEGATIVE; URINE PHENCYCLIDINE SCREEN NEGATIVE
[2017-10-09 06:34] LABS: URINE COCAINE SCREEN UNCONFIRMED POSITIVE
[2017-10-09] MEDS ORDERED: FENTANYL CITRATE INJ/PF 100 MCG/2 ML AMPUL ONE (08:31)
[2017-10-09] MEDS ORDERED: EPHEDRINE SULFATE INJ 50 MG/1 ML AMPULE ONE (08:32)
[2017-10-09] MEDS ORDERED: ONDANSETRON HCL INJ/PF 4 MG/2 ML SDV ONE (08:32)
[2017-10-09] MEDS ORDERED: MIDAZOLAM 2 MG/2 ML INJ ONE (08:32)
[2017-10-09] MEDS ORDERED: PROPOFOL INJ 200 MG/20 ML VIAL IV ONE (08:32)
--- NOTE | 2017-10-09 09:58 | Operative Report ---
Operative Report DATE OF SURGERY: 10/09/17 PREOPERATIVE DIAGNOSIS: Right UPJ stone with obstruction, urinary tract infection POSTOPERATIVE DIAGNOSIS: Same OPERATION: Cystoscopy, placement of right ureteral stent SURGEON: DORINA HOLM II ANESTHESIA: GA ESTIMATED BLOOD LOSS: Minimal INTRAOPERATIVE FINDINGS: 8 mm obstructing stone at the right ureteropelvic junction PROCEDURE: The patient was taken to the cystoscopy suite and placed into the supine position on the gantry. After adequate general anesthesia, she was placed into the lithotomy position and prepped and draped in usual sterile fashion. Cystoscopy was carried out with a 21 Setswana panendoscope in the right ureteral orifice visualized. 0.035 Glidewire was placed into the right ureteral orifice and advanced retrograde to the right ureteropelvic junction. Initially, fluoroscopy was an operative. The procedure was halted at this point. Once the fluoroscopic unit became operative, the Glidewire was visualized and advanced into the renal pelvis. A 4.8 Setswana 26 cm Polaris double-J stent was then passed over the Glidewire and into the right renal pelvis. It was positioned under fluoroscopic guidance. Purulent material was seen exiting the stent portion that remained curled in the bladder. The bladder was drained and the cystoscope removed. The patient was returned to PACU in satisfactory condition.
[2017-10-09] MEDS ORDERED: CEFTRIAXONE 1 GM/D5W RTU 1 GM/50 ML RTUPB IV SCH (10:00)
[2017-10-09] MEDS ORDERED: CEFTRIAXONE SODIUM 1,000 MG in NORMAL SALINE 50 ML IV SCH (10:00)
[2017-10-09] MEDS ORDERED: FENTANYL CITRATE INJ/PF 100 MCG/2 ML AMPUL IV PRN ×3 (10:20)
[2017-10-09] MEDS ORDERED: MEPERIDINE HCL/PF INJ 25 MG/1 ML DISP.SYRIN IV PRN (10:20)
[2017-10-09] MEDS ORDERED: DIPHENHYDRAMINE HCL 50 MG/ML VIAL IV PRN (10:20)
[2017-10-09 12:19] VITALS: BP 94/52
--- NOTE | 2017-10-09 17:03 | PDOC DISCHARGE SUMMARY ---
General - Admit/Disc Date/PCP Admission Date/Primary Care Provider: 10/07/17 13:34 Discharge Date: 10/09/17 - Discharge Diagnosis (1) Obstruction of right ureteropelvic junction (UPJ) due to stone Is this a current diagnosis for this admission?: Yes (2) UTI (urinary tract infection) Is this a current diagnosis for this admission?: Yes (3) Depression with anxiety Is this a current diagnosis for this admission?: Yes (4) Tobacco dependence Is this a current diagnosis for this admission?: Yes (5) Illicit drug use Is this a current diagnosis for this admission?: Yes - Additional Information Resuscitation Status: Full Code Discharge Diet: Regular Discharge Activity: Activity As Tolerated, Balance Activity w/Rest Prescriptions: Ciprofloxacin HCl [Cipro 500 mg Tablet] 500 mg PO BID #20 tablet Hydrocodone/Acetaminophen [[place] 5-325 Tablet] 1 each PO Q6HP PRN #6 tablet PRN Reason: for moderate/severe pain Ondansetron [Zofran Odt 4 mg Tablet] 1 - 2 tab PO Q4HP PRN #10 tab.rapdis PRN Reason: For Nausea/Vomiting Home Medications: Aripiprazole [Abilify 30 MG Tablet] 15 mg PO DAILY 10/07/17 Gabapentin [Neurontin 300 mg Capsule] 300 mg PO BID 10/07/17 Hydroxyzine Pamoate [Vistaril 25 mg Capsule] 25 mg PO Q12HP PRN 10/07/17 Multivitamin [Animal [employer]apes Vitamins] 1 tab PO DAILY 10/07/17 Venlafaxine HCl ER [Effexor Xr 75 mg Cap.sr] 150 mg PO DAILY 10/07/17 Acetaminophen [Tylenol 325 mg Tablet] 650 mg PO Q4HP PRN tablet 10/09/17 Ciprofloxacin HCl [Cipro 500 mg Tablet] 500 mg PO BID #20 tablet 10/09/17 Hydrocodone/Acetaminophen [[place] 5-325 Tablet] 1 each PO Q6HP PRN #6 tablet Ondansetron [Zofran Odt 4 mg Tablet] 1 - 2 tab PO Q4HP PRN #10 tab.rapdis History of Present Illness History of Present Illness: VALERIO URBANO is a 37 year old female with a past medical history of PKU, renal stones, bipolar, PTSD, depression and anxiety who presented to the emergency department today with a complaint of right flank pain for the last 4 days. Initially pain was intermittent but now is constant and worsening; similar to previous kidney stone pain. Evaluation in the emergency department reveals mild leukocytosis with a WBC of 10.8, normal chemistry, and urinalysis with positive for ketones, blood, leukoesterase, and WBCs. Renal CT revealed a 14 x 8 mm right UPJ stone with mild to moderate hydronephrosis. Urology has been consulted by the emergency department provider and has agreed to place a stent tomorrow. She is referred to the hospitalist service for observational admission and management. Hospital Course Hospital Course: The patient was admitted with right flank pain and CT imaging revealing a partially obstructing renal calculi a right UJP with mild to moderate hydronephrosis. Urinalysis was questionable for UTI, however, the patient denied fever, chills, suprapubic pain, urinary urgency, frequency, and dysuria. She did receive 1 dose of IV Rocephin. Urine culture revealed mixed urogenital silverio. Urology was consulted, and on 10/09/17, Dr. Truong was able to take the patient to the OR and place a right ureter stent. Operative note indicates that purulent fluid was noted. Therefore, the patient was discharged on 10 days of oral ciprofloxacin. At time of discharge, the patient was in stable condition, pain-free, successfully voiding, and tolerating a regular diet. She was discharged with prescriptions for ciprofloxacin, [place], and Zofran. She was advised to follow- up with the [facility] to establish with a local primary care provider and to follow-up with Dr. Truong in 2 weeks. Physical Exam Vital Signs: Temp Pulse Resp BP Pulse Ox 98.2 F 65 18 94/52 L 95 10/09/17 12:12 10/09/17 12:12 10/09/17 12:12 10/09/17 12:12 10/09/17 12:12 Intake & Output 10/08/17 10/09/17 10/10/17 06:59 06:59 06:59 Intake Total 2038 1125 Output Total 1100 225 Balance 938 900 Weight 71.5 kg 71 kg General appearance: PRESENT: no acute distress, well-developed, well-nourished, other - Overweight Head exam: PRESENT: atraumatic, normocephalic Eye exam: PRESENT: conjunctiva pink, EOMI, PERRLA. ABSENT: scleral icterus Ear exam: PRESENT: normal external ear exam Mouth exam: PRESENT: moist, tongue midline Neck exam: ABSENT: carotid bruit, JVD, lymphadenopathy, thyromegaly Respiratory exam: PRESENT: clear to auscultation jesusita. ABSENT: rales, rhonchi, wheezes Cardiovascular exam: PRESENT: RRR. ABSENT: diastolic murmur, rubs, systolic murmur Pulses: PRESENT: normal dorsalis pedis pul Vascular exam: PRESENT: normal capillary refill GI/Abdominal exam: PRESENT: normal bowel sounds, soft. ABSENT: distended, guarding, mass, organolmegaly, rebound, tenderness Rectal exam: PRESENT: deferred Extremities exam: PRESENT: full ROM. ABSENT: calf tenderness, clubbing, pedal edema Neurological exam: PRESENT: alert, awake, oriented to person, oriented to place , oriented to time, oriented to situation, CN II-XII grossly intact. ABSENT: motor sensory deficit Psychiatric exam: PRESENT: appropriate affect, normal mood. ABSENT: homicidal ideation, suicidal ideation Skin exam: PRESENT: dry, intact, warm. ABSENT: cyanosis, rash Results Laboratory Results: 10/08/17 06:24 10/08/17 06:24 Impressions: Limited or Localized CT 10/07/17 11:23 IMPRESSION: 1. 14 x 8 mm right UPJ stone with mild to moderate obstructive changes. Qualifiers - * PATIENT BEING DISCHARGED WITH ANY OF THE FOLLOWING DIAGNOSIS: No Plan Discharge Plan: Discharge to home with self-care. Follow-up with Dr. Truong on 10/18/17. Time Spent: Less than 30 Minutes
--- NOTE | 2017-10-11 07:49 | RADIOLOGY REPORT (SQ) ---
EXAM DESCRIPTION: KUB/ABDOMEN (SINGLE VIEW); NO CHG FLUORO COMPLETED DATE/TIME: 10/09/2017 3:48 pm REASON FOR STUDY: RT URETERAL STENT PLACEMENT COMPARISON: CT abdomen pelvis 10/07/2017 FLUOROSCOPY TIME: 45 seconds 2 digital cysto images saved to PACS. TECHNIQUE: Intra-operative images acquired during surgical procedure to evaluate progress. NUMBER OF IMAGES: 2 digital cysto images LIMITATIONS: None. FINDINGS: 2 images are submitted during placement of a right-sided double-J ureteral stent in good p ositioning. A 1.4 cm stone is present at the right ureteropelvic junction on both films. IMPRESSION: Intra procedural imaging and fluoro during double-J stent placement on the right COMMENT: Quality ID [id number]: Final reports for procedures using fluoroscopy that document radiation exp osure indices, or exposure time and number of fluorographic images (if radiation exposure indices are not available) Please consult full operative report of the attending physician for description of the procedure. TECHNICAL DOCUMENTATION: JOB ID: [id number] [employer]- All Rights Reserved Reading location - IP/workstation name: [email or web address]
--- NOTE | 2017-10-11 07:49 | RADIOLOGY REPORT (SQ) ---
EXAM DESCRIPTION: KUB/ABDOMEN (SINGLE VIEW); NO CHG FLUORO COMPLETED DATE/TIME: 10/09/2017 3:48 pm REASON FOR STUDY: RT URETERAL STENT PLACEMENT COMPARISON: CT abdomen pelvis 10/07/2017 FLUOROSCOPY TIME: 45 seconds 2 digital cysto images saved to PACS. TECHNIQUE: Intra-operative images acquired during surgical procedure to evaluate progress. NUMBER OF IMAGES: 2 digital cysto images LIMITATIONS: None. FINDINGS: 2 images are submitted during placement of a right-sided double-J ureteral stent in good p ositioning. A 1.4 cm stone is present at the right ureteropelvic junction on both films. IMPRESSION: Intra procedural imaging and fluoro during double-J stent placement on the right COMMENT: Quality ID [id number]: Final reports for procedures using fluoroscopy that document radiation exp osure indices, or exposure time and number of fluorographic images (if radiation exposure indices are not available) Please consult full operative report of the attending physician for description of the procedure. TECHNICAL DOCUMENTATION: JOB ID: [id number] [employer]- All Rights Reserved Reading location - IP/workstation name: [facility]-RR
== END 2017-10-09 13:45 | disposition home or self-care (01) ==
LOC: ER 08:38 → EH 13:34 → 2N 18:00
PROVIDERS: ADMIT Internal Medicine; ATTEND Internal Medicine
PROC: 0T9680Z Drainage of Right Ureter with Drainage Device, Via Natural or Artificial Opening Endoscopic (ICD-10-PCS; principal; 2017-10-09 08:00)
DX: N13.2 Hydronephrosis with renal and ureteral calculous obstruction (principal); N39.0 Urinary tract infection, site not specified; R31.9 Hematuria, unspecified; F41.8 Other specified anxiety disorders; F17.210 Nicotine dependence, cigarettes, uncomplicated; F14.90 Cocaine use, unspecified, uncomplicated; F12.90 Cannabis use, unspecified, uncomplicated; E70.1 Other hyperphenylalaninemias; D72.829 Elevated white blood cell count, unspecified; Z87.442 Personal history of urinary calculi; Z79.899 Other long term (current) drug therapy
CPT/HCPCS: 99285; 96361; 96375; 96365; 36415 ×2; 87086; 84703; 85025; 85027; 80048; 80053; 81001; 80307 ×2; 74018; 76380; 93005; 93010; 52332; C2617; J2250; J3490 ×2; J3010; J1885 ×2; J0696; J2405; J7030 ×3; J2704; 910; J0690

== ENCOUNTER 2017-10-12 05:42 | Emergency (ER) | payer OTHER ==
[2017-10-12 06:29] LABS: APPEARANCE,URINE CLOUDY; BILIRUBIN,URINE NEGATIVE (NEGATIVE); COLOR,URINE YELLOW; GLUCOSE, URINE NEGATIVE (NEGATIVE); KETONES,URINE NEGATIVE (NEGATIVE); LEUKOCYTE ESTERASE,URINE LARGE (NEGATIVE); NITRITE,URINE NEGATIVE (NEGATIVE); PROTEIN,URINE 100 mg/dL (NEGATIVE); URINE SPECIFIC GRAVITY 1.016; UROBILINOGEN,URINE NEGATIVE mg/dL (<2.0)
[2017-10-12 06:33] LABS: ABSOLUTE BASOPHILS # (AUTO) 0.1 10^3/uL (0.0-0.2); ABSOLUTE EOSINOPHILS # (AUTO) 0.4 10^3/uL (0.0-0.6); ABSOLUTE LYMPHOCYTES (AUTO) 2.1 10^3/uL (0.5-4.7); ABSOLUTE MONOCYTES (AUTO) 0.6 10^3/uL (0.1-1.4); ABSOLUTE NEUT (AUTO) 3.2 10^3/uL (1.7-8.2); BASOPHILS % (AUTO) 0.9 % (0-2); EOSINOPHILS % (AUTO) 5.7 % (0-6); LYMPHOCYTES % (AUTO) 32.8 % (13-45); MEAN CORPUSCULAR HEMOGLOBIN 31.5 pg (27.0-33.4); MEAN CORPUSCULAR HGB CONC 34.4 g/dL (32.0-36.0); MEAN CORPUSCULAR VOLUME 92 fl (80-97); PLATELET COUNT 289 10^3/uL (150-450); RED BLOOD COUNT 3.83 10^6/uL (3.72-5.28); RED CELL DISTRIBUTION WIDTH 13.1 % (11.5-14.0); SEGMENTED NEUTROPHILS % (AUTO) 50.6 % (42-78); TOTAL CELLS COUNTED % (AUTO) 100 %; WHITE BLOOD COUNT 6.3 10^3/uL (4.0-10.5)
[2017-10-12] MEDS ORDERED: NORMAL SALINE 1000 ML 1,000 ML IV ONE (06:43)
--- NOTE | 2017-10-12 06:43 | ER Document Report ---
ED General - General Mode of Arrival: Ambulatory Information source: Patient TRAVEL OUTSIDE OF THE [place] IN LAST 30 DAYS: No <VERN GALLO - Last Filed: 10/12/17 07:29> <ARDEN LONGORIA - Last Filed: 10/12/17 15:42> - General Chief Complaint: Post Surgical Pain Stated Complaint: POST SURGICAL PAIN Time Seen by Provider: 10/12/17 06:11 Notes: Patient is a 37 year old female with a history of frequent kidney stones presents to the emergency department complaining of dysuria. Patient states she was seen in the emergency department on 10/07/2017 and diagnosed with a kidney infection and a large kidney stone. Patient states she was admitted, had a stent placed and discharged home on 10/09/2017 with Cipro and [place]. Patient states she has been having urinary frequency, urinary retention, and painful urination. She also states her urine went from pink in color to red in color and noticed some blood clots. Patient brought a urine strainer with her and there is apparent blood clots and pieces of stone in the strainer. Patient's dose of Cipro is 500 mg 2x daily for 10 days. Patient last dose of Cipro and [place] was 1830 last night. Her reference librarian is Dr. Holm and mentions having a follow up appointment with him on 10/18/2016 and an appointment with [place] today. (VERN GALLO) - Related Data Allergies/Adverse Reactions: No Known Allergies Allergy (Verified 04/16/16 09:44) Past Medical History - General Information source: Patient - Social History Smoking Status: Current Some Day Smoker - states socially Cigarette use (# per day): Yes Frequency of alcohol use: None Drug Abuse: Cocaine - states socially Family History: Reviewed & Not Pertinent, Hyperlipidemia, Hypertension, Malignancy, Other Patient has suicidal ideation: No Patient has homicidal ideation: No Renal/ Medical History: Reports: Hx Kidney Stones Musculoskeletal Medical History: Reports Hx Musculoskeletal Trauma Psychiatric Medical History: Reports: Hx Anxiety, Hx Bipolar Disorder, Hx Depression, Hx Post Traumatic Stress Disorder Past Surgical History: Reports: Hx Nose Surgery, Hx Oral Surgery - Immunizations Hx Diphtheria, Pertussis, Tetanus Vaccination: No <VERN GALLO - Last Filed: 10/12/17 07:29> Review of Systems - Review of Systems Constitutional: No symptoms reported EENT: No symptoms reported Cardiovascular: No symptoms reported Respiratory: No symptoms reported Gastrointestinal: No symptoms reported Genitourinary: See HPI, Dysuria, Frequency, Hematuria, Pain, Urgency, Retention Female Genitourinary: No symptoms reported Musculoskeletal: No symptoms reported Skin: No symptoms reported Hematologic/Lymphatic: No symptoms reported Neurological/Psychological: No symptoms reported -: Yes All other systems reviewed and negative <SABINOVERN - Last Filed: 10/12/17 07:29> Physical Exam <SABINOMARYANDANNY - Last Filed: 10/12/17 07:29> <ARDEN LONGORIA - Last Filed: 10/12/17 15:42> - Vital signs Vitals: Temp Pulse Resp BP Pulse Ox 98.3 F 82 18 132/75 H 98 10/12/17 05:49 10/12/17 05:49 10/12/17 05:49 10/12/17 05:49 10/12/17 05:49 - Notes Notes: GENERAL: Alert, interacts well. No acute distress. HEAD: Normocephalic, atraumatic. EYES: Pupils equal, round, and reactive to light. Extraocular movements intact. ENT: Oral mucosa moist, tongue midline. NECK: Full range of motion. Supple. Trachea midline. LUNGS: Clear to auscultation bilaterally, no wheezes, rales, or rhonchi. No respiratory distress. HEART: Regular rate and rhythm. No murmurs, gallops, or rubs. ABDOMEN: Soft, right side of abdomen tender to palpation. Non-distended. Bowel sounds present in all 4 quadrants. EXTREMITIES: Moves all 4 extremities spontaneously. No edema, radial and dorsalis pedis pulses 2/4 bilaterally. No cyanosis. NEUROLOGICAL: Alert and oriented x3. Normal speech. PSYCH: Normal affect, normal mood. SKIN: Warm, dry, normal turgor. No rashes or lesions noted. (SAIBNOVERN) Course - Laboratory Result Diagrams: 10/12/17 06:27 10/12/17 06:27 <SABINOVERN - Last Filed: 10/12/17 07:29> - Laboratory Result Diagrams: 10/12/17 06:27 10/12/17 06:27 <ARDEN LONGORIA - Last Filed: 10/12/17 15:42> - Re-evaluation Re-evalutation: 10/12/17 09:22 No fever, no leukocytosis, no urinary retention seen on bladder scan before or after 1 L NS was given. Spoke with Dr. Holm, agrees that the stent itself can cause the stimulus that gives the sensation of urinary frequency. No indication of infection at this time. The urinalysis findings can all be seen with a stent. Patient has no fever no leukocytosis. Patient will be discharged to home and encouraged to drink plenty of fluids, will be left on the ciprofloxacin. Urine culture has been sent, prior urinalysis results were reviewed and that urine culture showed mixed urogenital silverio. Patient will be prescribed a limited number of [place] for continued use at home. Discussed with patient that her cocaine use in the past makes it difficult to prescribe controlled substances for her pain. Patient will follow up with Dr. Holm's partner Dr. Tristan on the . (ARDEN LONGORIA) - Vital Signs Vital signs: Temp Pulse Resp BP Pulse Ox 97.9 F 73 16 115/83 100 10/12/17 09:40 10/12/17 09:40 10/12/17 09:40 10/12/17 09:40 10/12/17 09:40 - Laboratory Laboratory results interpreted by me: 10/12/17 10/12/17 10/12/17 06:14 06:27 06:27 Hct 35.0 L Chloride 110 H BUN 6 L Urine Protein 100 H Urine Blood LARGE H Ur Leukocyte Esterase LARGE H Discharge <VERN GALLO - Last Filed: 10/12/17 07:29> <ARDEN LONGORIA - Last Filed: 10/12/17 15:42> - Discharge Clinical Impression: Pain due to ureteral stent Qualifiers: Encounter type: initial encounter Qualified Code(s): T83.84XA - Pain due to genitourinary prosthetic devices, implants and grafts, initial encounter Condition: Stable Disposition: HOME, SELF-CARE Additional Instructions: Your pain and sensation of always needing to urinate is likely coming from the urinary stent. Your urinalysis shows blood and white blood cells however this is likely due to the stent itself. You are already taking the right antibiotic , this does not need to be changed. Please continue taking it until it is gone. I have prescribed you a limited number of [place] (hydrocodone) for your pain. Please use ibuprofen 800 mg every 8 hours for your pain and only use the [place] when your pain is not controlled by the ibuprofen. The biggest thing that will help with your pain is drinking plenty of fluids. Please follow-up with a Dr. Tristan or Dr. Holm in the office as scheduled. Prescriptions: Hydrocodone/Acetaminophen [[place] 5-325 Tablet] 1 each PO Q6HP PRN #6 tablet PRN Reason: Forms: Return to Work Referrals: CAMDEN PALUMBO, MEDINA [Primary Care Provider] - Follow up as needed DORINA HOLM II, MD [ALDO [facility]] - Follow up as needed KEENA TRISTAN MD [ALDO VAZ] - Follow up as needed Scribe Attestation: 10/12/17 15:42 I personally performed the services described in the documentation, reviewed and edited the documentation which was dictated to the scribe in my presence, and it accurately records my words and actions. (ARDEN LONGORIA) Scribe Documentation - Scribe Written by Marye:: Julián Orourke, 10/12/2017 07:17 acting as scribe for :: Jeffrey <VERN GALLO - Last Filed: 10/12/17 07:29>
[2017-10-12 06:59] LABS: ALANINE AMINOTRANSFERASE 13 U/L (9-52); ALBUMIN 3.5 g/dL (3.5-5.0); ALKALINE PHOSPHATASE 82 U/L (38-126); ANION GAP 11 (5-19); ASPARTATE AMINO TRANSFERASE 19 U/L (14-36); BILIRUBIN,DIRECT 0.3 mg/dL (0.0-0.4); BILIRUBIN,TOTAL 0.3 mg/dL (0.2-1.3); BLOOD UREA NITROGEN 6 mg/dL (7-20); CARBON DIOXIDE 22 mmol/L (22-30); CHLORIDE 110 mmol/L (98-107); GLUCOSE 91 mg/dL (75-110); SODIUM 143.1 mmol/L (137-145); TOTAL PROTEIN 6.5 g/dL (6.3-8.2)
[2017-10-12 09:47] VITALS: BP 115/83
== END 2017-10-12 09:47 | disposition home or self-care (01) ==
LOC: ER 05:42
DX: T83.84XA Pain due to genitourinary prosthetic devices, implants and grafts, initial encounter (principal); G89.18 Other acute postprocedural pain; R30.0 Dysuria; R35.0 Frequency of micturition; R33.9 Retention of urine, unspecified; F17.210 Nicotine dependence, cigarettes, uncomplicated
CPT/HCPCS: 99283; 96360; 36415; 87086; 85025; 80053; 81001; J7030